=== PATIENT | female | born 1965 | race Asian ===

== ENCOUNTER 2016-12-08 12:48 | Emergency (ER) | payer BC ==
[2016-12-08] MEDS ORDERED: NS 1,000 ML IV ONE (12:53)
--- NOTE | 2016-12-08 13:05 | EDPHY ---
H & P Stated Complaint: Sudden onset SOB Time Seen by Provider: 12/08/16 12:53 HPI/ROS: CHIEF COMPLAINT: Severe dyspnea HISTORY OF PRESENT ILLNESS: The patient presents to the ED with complaints of severe dyspnea. The patient's symptoms began acutely at 11 o'clock this morning. She denies recent fever cough or congestion. She has no history of reactive airway disease. She reportedly had mild wheezing according to paramedics. She received Solu-Medrol and 2 albuterol breathing treatments. Patient denies history of pulmonary embolism. She denies history of significant medical disease. The patient [place] living [place] since May of last year. The patient did moved to [place] from [facility] during that time. REVIEW OF SYSTEMS: A comprehensive 10 point review of systems is otherwise negative aside from elements mentioned in the history of present illness. Source: Patient, EMS - Personal History Current Tetanus/Diphtheria Vaccine: No Current Tetanus Diphtheria and Acellular Pertussis (TDAP): No - Medical/Surgical History Hx Asthma: No Hx Chronic Respiratory Disease: No Hx Diabetes: No Hx Cardiac Disease: No Hx Renal Disease: No Hx Cirrhosis: No Hx Alcoholism: No Hx HIV/AIDS: No Hx Splenectomy or Spleen Trauma: No Other PMH: Denies - Social History Smoking Status: Current every day smoker - Physical Exam Exam: General Appearance: Alert, moderate distress secondary to dyspnea Eyes: Pupils equal and round no pallor or injection ENT, Mouth: Mucous membranes moist Respiratory: Scant expiratory wheezing, tachypnea Cardiovascular: Tachycardic Gastrointestinal: Abdomen is soft and nontender, no masses, bowel sounds normal Neurological: A&O, normal motor function, normal sensory exam, normal cranial nerves Skin: Warm and dry, no rashes Musculoskeletal: Neck is supple nontender Extremities: symmetrical, full range of motion Psychiatric: Patient is oriented X 3, there is no agitation Constitutional: Initial Vital Signs Temperature (C) 36.5 C 12/08/16 12:56 Heart Rate 118 H 12/08/16 12:56 Respiratory Rate 78 H 12/08/16 12:56 Blood Pressure 99/61 L 12/08/16 12:56 O2 Sat (%) 97 12/08/16 12:56 O2 Delivery Mode Room Air Allergies/Adverse Reactions: Penicillins Allergy (Verified 12/08/16 12:56) Home Medications: Medication Instructions Recorded NK [No Known Home Meds] 12/08/16 Medical Decision Making - Diagnostics EKG Interpretation: EKG: Complete interpretation has been separately recorded in the [employer] archive. Summary impression: Sinus rhythm, rate 92, mild LVH Imagin. Chest x-ray PA lateral: Images reviewed by myself, negative for acute abnormality. 2. Contrast Enhanced CT Scan of the Chest CT (CT Angiography) Images independently reviewed by myself Dr. Kitchen and discussed with radiologist Dr. Ryland Carlson Comparison Study: Chest radiography from earlier this afternoon. Findings: CT Angiography: The main pulmonary artery, the main right and left pulmonary arteries, and the first and second order pulmonary segments are contrast-opacified, with no filling defect to suggest acute or chronic thromboemboli. There is no interventricular septum deviation, and there is a small amount of reflux of contrast into the intrahepatic IVC. The ascending and descending thoracic aorta , as well as the visualized upper abdominal aorta are normal in caliber, with no aneurysm or dissection. There is a normal anatomic arrangement of the great vessels off the aortic arch. There is no coronary artery atherosclerotic calcification. The pericardium is normal. Contrast-Enhanced CT Scan of the Chest: There is pneumomediastinum present, noted at the base of the neck and thoracic inlet, and then surrounding the trachea and esophagus, and extending to the proximal left main stem bronchi and superior segment left lower lobe bronchi; there is no mass identified or mediastinal hematoma. There is no endobronchial lesion observed. The lungs are clear of infiltrate, atelectasis, or pulmonary nodule. There is biapical pleural- parenchymal fibrosis. There are some minor dependent changes seen posteriorly at the lung bases. There is no pleural effusion or pneumothorax. There is no pathologically-enlarged adenopathy. The visualized portions of the thyroid gland and the upper abdomen are normal. The osseous structures are age-appropriate. Impression: 1. There is no CT evidence of pulmonary artery thromboemboli. 2. Mild pneumomediastinum, of uncertain etiology. There is no evidence of a pneumothorax. 3. Mild biapical pleural-parenchymal fibrosis. ED Course/Re-evaluation: The patient presents to the ED with dyspnea which began abruptly earlier today. The patient was noted to be mildly tachycardic and slightly hypoxemic. The patient was noted to have an elevated D-dimer. A CT pulmonary angiogram was ordered which demonstrates no evidence of PE but does demonstrate evidence of pneumomediastinum. The patient's EKG demonstrates a sinus rhythm. Her troponin is normal. The patient did received 2 duo nebs prior to arrival. The patient had scant wheezing initially upon arrival. The patient was noted to be slightly tachycardic upon arrival. She did receive supplemental oxygen. The patient was evaluated and underwent 3 serial examinations over a 3 hour period. At this point time her dyspnea has entirely resolved. She has no complaints of chest pain. I did curbside Dr. Alexsander Short about the patient's incidentally noted pneumomediastinum. She has no symptoms suggestive of mediastinitis. She has no complaints of chest pain. He reports no further workup is indicated. The patient will referred to a [facility] primary care provider for establishing primary care. The patient understands given the uncertainty surrounding her dyspnea today that she needs to return to the ED immediately for any recurrent symptoms, chest pain, fever or other concerns. Differential Diagnosis: Differential diagnosis considered includes pulmonary embolism, pneumothorax, myocardial infarction, arrhythmia, bronchitis, pneumonia - Data Points Laboratory Results: Laboratory Results 12/08/16 13:05 12/08/16 13:05 12/08/16 12/08/16 13:06 13:05 WBC 8.41 10^3/uL (3.80-9.50) RBC 4.65 10^6/uL (4.18-5.33) Hgb 10.1 L g/dL (12.6-16.3) POC Hgb 12.2 L gm/dL (12.3-15.9) Hct 32.6 L % (38.0-47.0) POC Hct 36 % (35.5-47.5) MCV 70.1 L fL (81.5-99.8) MCH 21.7 L pg (27.9-34.1) MCHC 31.0 L g/dL (32.4-36.7) RDW 18.6 H % (11.5-15.2) Plt Count 194 10^3/uL (150-400) MPV 10.2 fL (8.7-11.7) Neut % (Auto) 69.1 % (39.3-74.2) Lymph % (Auto) 26.6 % (15.0-45.0) [place] % (Auto) 3.0 L % (4.5-13.0) Eos % (Auto) 0.7 % (0.6-7.6) Baso % (Auto) 0.1 L % (0.3-1.7) Nucleat RBC Rel Count 0.0 % (0.0-0.2) Absolute Neuts (auto) 5.81 10^3/uL (1.70-6.50) Absolute Lymphs (auto) 2.24 10^3/uL (1.00-3.00) Absolute Monos (auto) 0.25 L 10^3/uL (0.30-0.80) Absolute Eos (auto) 0.06 10^3/uL (0.03-0.40) Absolute Basos (auto) 0.01 L 10^3/uL (0.02-0.10) Absolute Nucleated RBC 0.00 10^3/uL (0-0.01) Immature Gran % 0.5 % (0.0-1.1) Immature Gran # 0.04 10^3/uL (0.00-0.10) D-Dimer 0.95 H ug/mLFEU (0.00-0.50) POC Sodium 142 mEq/L (134-144) Sodium 141 mEq/L (134-144) POC Potassium 3.4 mEq/L (3.3-5.0) Potassium 3.7 mEq/L (3.5-5.2) POC Chloride 105 mEq/L (96-108) Chloride 108 mEq/L (97-110) Carbon Dioxide 21 L mEq/l (22-31) Anion Gap 12 mEq/L (8-16) POC BUN 14 mg/dL (7-23) BUN 15 mg/dL (7-23) Creatinine 0.7 mg/dL (0.6-1.0) POC Creatinine 0.6 mg/dL (0.6-1.2) Estimated GFR > 60 Glucose 168 H mg/dL (70-100) POC Glucose 175 H mg/dL (70-100) Calcium 9.1 mg/dL (8.5-10.4) Troponin I < 0.012 ng/mL (0-0.034) Medications Given: Discontinued Medications Sodium Chloride (Ns) 1,000 mls @ 0 mls/hr IV ONCE ONE PRN Reason: Wide Open Stop: 12/08/16 12:54 Last Admin: 12/08/16 13:20 Dose: 1,000 mls Point of Care Test Results: 12/08/16 13:06 POC Sodium 142 POC Potassium 3.4 POC Chloride 105 POC BUN 14 POC Creatinine 0.6 POC Glucose 175 H Departure - Departure Disposition: Home, Routine, Self-Care Clinical Impression: Acute dyspnea, Pneumomediastinum Condition: Good Instructions: Dyspnea (ED) Additional Instructions: 1. Please return to the ED for any fever, chest pain, difficulty breathing or other concerns. 2. Please schedule a follow-up appointment with the primary care provider you have been referred to. Referrals: Bradley Subramanian MD [Medical Doctor] - As per Instructions
[2016-12-08 13:17] LABS: % IMMATURE GRANULYOCYTES 0.5 % (0.0-1.1); ABSOLUTE IMMATURE GRANULOCYTES 0.04 10^3/uL (0.00-0.10); ADD DIFF? NO; ADD MORPH? NO; ADD SCAN? NO; ATYPICAL LYMPHOCYTE FLAG 10 (0-99); FRAGMENT RBC FLAG 20 (0-99); HEMATOCRIT 32.6 % (38.0-47.0); HEMOGLOBIN 10.1 g/dL (12.6-16.3); LEFT SHIFT FLG 0 (0-99); LIPEMIA HEMOLYSIS FLAG 80 (0-99); MEAN CELL HEMOGLOBIN 21.7 pg (27.9-34.1); MEAN CELL VOLUME 70.1 fL (81.5-99.8); MEAN PLATELET VOLUME 10.2 fL (8.7-11.7); PLATELET CLUMPS FLAG 10 (0-99); PLATELET COUNT 194 10^3/uL (150-400); RED BLOOD CELL COUNT 4.65 10^6/uL (4.18-5.33); RED CELL DISTRIBUTION WIDTH 18.6 % (11.5-15.2)
--- NOTE | 2016-12-08 13:18 | CPEKG ---
Heart Rate: 92 RR Interval: 652 P-R Interval: 148 QRSD Interval: 92 QT Interval: 380 QTC Interval: 471 P Southside: 71 QRS [place]side: 85 T Wave [place]: -6 EKG Severity - ABNORMAL ECG - EKG Impression: SINUS RHYTHM EKG Impression: CONSIDER LEFT VENTRICULAR HYPERTROPHY Electronically Signed By: Riley Kitchen 08-Dec-2016 18:14:37
--- NOTE | 2016-12-08 13:28 | DX ---
Portable AP Upright Chest December 08, 2016 at 1:03 p.m. Clinical History: 51-year-old female with a flushed sensation and dyspnea. Comparison Study: None. Findings: Telemetry monitoring lead lines are noted. The cardiac and mediastinal silhouettes are norm al in size. There is moderate central perihilar bronchial wall thickening. There is no confluent infi ltrate, atelectasis, pleural effusion, peripheral interstitial edema, or pneumothorax. A nodular opac ity over the left lower chest likely corresponds to the patient's nipple, however, confirmation with nipple markers is recommended. The osseous structures are age-appropriate. The trachea is midline. Impression: 1. Perihilar bronchitis without a focal infiltrate. 2. Probable nipple artifact over the left lower chest; however, confirmation with nipple markers is s uggested. I have notified Real, our medical technologist hematology to obtain this additional view with nipple ma rkers while the patient is still in the emergency department. ADDENDUM: A follow-up radiograph was obtained at 1:27 p.m. with nipple markers. The previously seen n odular opacity does in fact correspond to the patient's nipple, and does not represent a pulmonary no dule.
[2016-12-08 13:36] LABS: ANION GAP 12 mEq/L (8-16); CALCIUM 9.1 mg/dL (8.5-10.4); CARBON DIOXIDE 21 mEq/l (22-31); CHLORIDE 108 mEq/L (97-110); CREATININE 0.7 mg/dL (0.6-1.0); GLOMERULAR FILTRATION RATE > 60; GLUCOSE 168 mg/dL (70-100); POTASSIUM 3.7 mEq/L (3.5-5.2); SODIUM 141 mEq/L (134-144)
[2016-12-08] MEDS ORDERED: IOPAMIDOL (ISOVUE 370) 100 ML BTL IV ONE ×2 (13:41→14:40)
[2016-12-08 13:47] LABS: TROPONIN I < 0.012 ng/mL (0-0.034)
--- NOTE | 2016-12-08 15:33 | CT ---
Contrast Enhanced CT Scan of the Chest CT (CT Angiography) Clinical History: 51-year-old female with severe chest pain for 3 hours, and an elevated D-dimer 0.95 . Rule out PE. The patient also has a "flushed" sensation. Technique: An initial bolus of 90 mL of Isovue-370 did not successfully capture the pulmonary arteria l tree during optimal contrast opacification, and the patient received a second bolus of 85 mL of Iso amparo-370 with success. A multidetector helical CT scan was obtained from the base of the neck inferior ly to the upper abdomen during peak arterial phase, with images reformatted in soft tissue, lung, desiree er, and bone windows, and are reformatted at 1.50 mm and 4/3 mm increments. Multiplanar reconstructio ns were reviewed on the workstation. Dose reduction techniques were utilized. Comparison Study: Chest radiography from earlier this afternoon. Findings: CT Angiography: The main pulmonary artery, the main right and left pulmonary arteries, and the first and second order pulmonary segments are contrast-opacified, with no filling defect to suggest acute o r chronic thromboemboli. There is no interventricular septum deviation, and there is a small amount o f reflux of contrast into the intrahepatic IVC. The ascending and descending thoracic aorta, as well as the visualized upper abdominal aorta are normal in caliber, with no aneurysm or dissection. There is a normal anatomic arrangement of the great vessels off the aortic arch. There is no coronary arter y atherosclerotic calcification. The pericardium is normal. Contrast-Enhanced CT Scan of the Chest: There is pneumomediastinum present, noted at the base of the neck and thoracic inlet, and then surrounding the trachea and esophagus, and extending to the proxima l left main stem bronchi and superior segment left lower lobe bronchi; there is no mass identified or mediastinal hematoma. There is no endobronchial lesion observed. The lungs are clear of infiltrate, atelectasis, or pulmonary nodule. There is biapical pleural-parenchymal fibrosis. There are some john r dependent changes seen posteriorly at the lung bases. There is no pleural effusion or pneumothorax. There is no pathologically-enlarged adenopathy. The visualized portions of the thyroid gland and the upper abdomen are normal. The osseous structures are age-appropriate. Impression: 1. There is no CT evidence of pulmonary artery thromboemboli. 2. Mild pneumomediastinum, of uncertain etiology. There is no evidence of a pneumothorax. 3. Mild biapical pleural-parenchymal fibrosis. Results were discussed with Dr. Riley Kitchen. A test result has been communicated to a licensed care provider and documented in the [employer] Critical Result system on 12/08/2016 15:29, Message ID [id number].
[2016-12-08 16:52] VITALS: BP 98/57; PULSE 74; RESP 16; TEMP 98.6; O2SAT 93
== END 2016-12-08 16:52 | disposition home or self-care (01) ==
DX: R06.00 Dyspnea, unspecified (principal); J98.2 Interstitial emphysema; F17.200 Nicotine dependence, unspecified, uncomplicated
CPT/HCPCS: 82947-QW; Q9967

== ENCOUNTER 2018-03-07 15:43 | Inpatient (IN) | payer BC, MEDICAID ==
[2018-03-07] MEDS ORDERED: NS 500 ML IV ONE (16:27)
--- NOTE | 2018-03-07 16:31 | EDPHY ---
H & P Time Seen by Provider: 03/07/18 16:20 HPI/ROS: CHIEF COMPLAINT: Left flank pain HISTORY OF PRESENT ILLNESS: The patient is a 52-year-old female who presents emergency department multiple complaints. Patient states she developed left flank pain 3 days ago. Her pain is been fairly constant. It is mildly worse. The patient also complains of a fever starting today. While brushing her teeth she noticed a small blood in her spit after coughing. The patient denies significant cough. No chest pain or shortness of breath. No leg pain or swelling. No dysuria frequency. No hematuria. REVIEW OF SYSTEMS: My complete review of systems is negative except as mentioned in the HPI. Past Medical/Surgical History: Denies Social history: The patient smokes. Smoking Status: Current every day smoker Physical Exam: 38.8, 116/68, 116, 22, 95. Repeat vital signs at 1613:37.8, 106/71, 96, 16, 95% on room air GENERAL: Well-appearing, in no acute distress, alert. HEENT: Eyes normal to inspection, normal pharynx, no signs of dehydration. NECK: No thyromegaly, no lymphadenopathy, supple. RESPIRATORY: Clear to auscultation bilaterally, no rales, rhonchi or wheezing. CVS: Regular rate and rhythm, no rubs, murmurs, or gallops. ABDOMEN: Soft, nontender, nondistended, no organomegaly. BACK: Normal to inspection, no CVA tenderness. No rash SKIN: Normal color, no rash, warm, dry. No pallor. EXTREMITIES: No pedal edema, no calf tenderness, no Homans sign or cords, no joint swelling. NEURO/PSYCH: Alert and oriented, normal mood and affect, normal motor sensory exam. Constitutional: Initial Vital Signs Temperature (C) 38.8 C H 03/07/18 15:57 Heart Rate 116 H 03/07/18 15:57 Respiratory Rate 22 H 03/07/18 15:57 Blood Pressure 116/68 03/07/18 15:57 O2 Sat (%) 95 03/07/18 15:57 O2 Delivery Mode Room Air Allergies/Adverse Reactions: Penicillins Allergy (Verified 03/07/18 15:52) Home Medications: Medication Instructions Recorded Cefaclor 03/07/18 Ibuprofen 03/07/18 Medical Decision Making - Diagnostics Imaging Results: Imaging Impressions Abdomen/Pelvis CT 03/07/18 16:28 Impression: 1. Left basilar pneumonia versus pulmonary infarction. 2. Normal kidneys. No nephrolithiasis or obstructing ureteral calculi. 3. No appendicitis or localized intraabdominal inflammatory process. Findings discussed with Emergency Department physician, Zoe Stewart M.D. , on March 07, 2018 at 1749. Attention: This CT examination is specifically designed to evaluate patients who are clinically suspected of having acute obstructive uropathy. This examination does not use radiographic contrast, and as such, provides only a limited evaluation of the abdomen, pelvis, and retroperitoneum. If there is further clinical suspicion for pathological conditions other than obstructive uropathy, a complete CT evaluation of the abdomen and pelvis utilizing intravenous, oral, and rectal contrast should be considered. Chest X-Ray 03/07/18 16:28 Impression: Equivocal left basilar consolidation versus atelectasis. Findings discussed with Emergency Department physician, Zoe Stewart M.D. ED Course/Re-evaluation: In the emergency department I discussed possible etiologies with the patient. I answered all her questions. IV was placed. Laboratory studies were obtained. Because of the patient's reported blood in sputum a chest x-ray was ordered. CT of the abdomen pelvis without contrast was ordered. The patient's CBC was normal. Patient's white count is normal. The patient is anemic with a low hematocrit. The patient is thrombocytopenic with platelets of 100. Chemistry panel is unremarkable. UA negative. The CT the abdomen pelvis: Please refer the dictated report by Dr. Weber. Patient has abnormal left lower lobe. He felt this is related to pneumonia versus pulmonary embolus. CT angiogram was ordered. CT angiogram of the chest: Please refer the dictated report by Dr. Weber. Patient has a left sided pulmonary embolus. I discussed the results with the patient. I answered all her questions. On repeat evaluation the patient states that she has previously had a DVT. She is on medications from her changes physician. I discussed the case with the hospitalist service. Dr. Salazar will admit. She will come and evaluate the patient and determine what anticoagulant patient should be on. Differential Diagnosis: My differential includes but is not limited to kidney stone, pyelonephritis, urinary tract infection, bronchitis, pneumonia, pulmonary embolus, pulmonary infarct, zoster - Data Points Laboratory Results: Laboratory Results 03/07/18 16:30 18 16:30 03/07/1818 03/07/18 16:30 16:30 16:30 WBC 7.36 10^3/uL 10^3/uL (3.80-9.50) RBC 4.16 10^6/uL L 10^6/uL (4.18-5.33) Hgb 9.4 g/dL L g/dL (12.6-16.3) Hct 30.1 % L % (38.0-47.0) MCV 72.4 fL L fL (81.5-99.8) MCH 22.6 pg L pg (27.9-34.1) MCHC 31.2 g/dL L g/dL (32.4-36.7) RDW 18.5 % H % (11.5-15.2) Plt Count 100 10^3/uL L 10^3/uL (150-400) MPV TNP Neut % (Auto) 75.3 % H % (39.3-74.2) Lymph % (Auto) 17.7 % % (15.0-45.0) [place] % (Auto) 6.4 % % (4.5-13.0) Eos % (Auto) 0.0 % L % (0.6-7.6) Baso % (Auto) 0.3 % % (0.3-1.7) Nucleat RBC Rel Count 0.0 % % (0.0-0.2) Absolute Neuts (auto) 5.55 10^3/uL 10^3/uL (1.70-6.50) Absolute Lymphs (auto) 1.30 10^3/uL 10^3/uL (1.00-3.00) Absolute Monos (auto) 0.47 10^3/uL 10^3/uL (0.30-0.80) Absolute Eos (auto) 0.00 10^3/uL L 10^3/uL (0.03-0.40) Absolute Basos (auto) 0.02 10^3/uL 10^3/uL (0.02-0.10) Absolute Nucleated RBC 0.00 10^3/uL 10^3/uL (0-0.01) Immature Gran % 0.3 % % (0.0-1.1) Immature Gran # 0.02 10^3/uL 10^3/uL (0.00-0.10) VBG Lactic Acid Sodium 138 mEq/L mEq/L (135-145) Potassium 4.1 mEq/L mEq/L (3.5-5.2) Chloride 102 mEq/L mEq/L (97-110) Carbon Dioxide 23 mEq/l mEq/l (22-31) Anion Gap 13 mEq/L mEq/L (8-16) BUN 12 mg/dL mg/dL (7-23) Creatinine 0.6 mg/dL mg/dL (0.6-1.0) Estimated GFR > 60 Glucose 92 mg/dL mg/dL (70-100) Calcium 8.9 mg/dL mg/dL (8.5-10.4) Procalcitonin Pending Urine Color Urine Appearance Urine pH Ur Specific [place] Urine Protein Urine Ketones Urine Blood Urine Nitrate Urine Bilirubin Urine Urobilinogen Ur Leukocyte Esterase Urine RBC Urine WBC Ur Epithelial Cells Urine Mucus Urine Glucose 03/07/18 03/07/18 16:30 16:04 WBC RBC Hgb Hct MCV MCH MCHC RDW Plt Count MPV Neut % (Auto) Lymph % (Auto) [place] % (Auto) Eos % (Auto) Baso % (Auto) Nucleat RBC Rel Count Absolute Neuts (auto) Absolute Lymphs (auto) Absolute Monos (auto) Absolute Eos (auto) Absolute Basos (auto) Absolute Nucleated RBC Immature Gran % Immature Gran # VBG Lactic Acid 0.8 mmol/L mmol/L (0.7-2.1) Sodium Potassium Chloride Carbon Dioxide Anion Gap BUN Creatinine Estimated GFR Glucose Calcium Procalcitonin Urine Color YELLOW Urine Appearance CLEAR Urine pH 5.0 (5.0-7.5) Ur Specific [place] 1.019 (1.002-1.030) Urine Protein NEGATIVE (NEGATIVE) Urine Ketones NEGATIVE (NEGATIVE) Urine Blood NEGATIVE (NEGATIVE) Urine Nitrate NEGATIVE (NEGATIVE) Urine Bilirubin NEGATIVE (NEGATIVE) Urine Urobilinogen NEGATIVE EU EU (0.2-1.0) Ur Leukocyte Esterase NEGATIVE (NEGATIVE) Urine RBC 1-3 /hpf /hpf (0-3) Urine WBC 1-3 /hpf /hpf (0-3) Ur Epithelial Cells NONE SEEN /lpf /lpf (NONE-1+) Urine Mucus 2+ /lpf H /lpf (NONE-1+) Urine Glucose NEGATIVE (NEGATIVE) Medications Given: Discontinued Medications Sodium Chloride (Ns) 500 mls @ 0 mls/hr IV EDNOW ONE; Wide Open PRN Reason: Protocol Stop: 03/07/18 16:28 Last Admin: 03/07/18 16:50 Dose: 500 mls Departure - Departure Disposition: [facility] Inpatient Acute Clinical Impression: Flank pain Pulmonary embolism Qualifiers: Pulmonary embolism type: other Chronicity: acute Acute cor pulmonale presence: without acute cor pulmonale Qualified Code(s): I26.99 - Other pulmonary embolism without acute cor pulmonale Condition: Good
[2018-03-07 17:41] LABS: PLATELET COUNT 100 10^3/uL (150-400)
[2018-03-07] MEDS ORDERED: IOPAMIDOL (ISOVUE 370) 100 ML BTL IV ONE (17:55)
[2018-03-07] MEDS ORDERED: ONDANSETRON 4 MG/2 ML VIAL IVP PRN (18:29)
[2018-03-07] MEDS ORDERED: ONDANSETRON DISINTEGRATING 4 MG TAB PO PRN (18:29)
[2018-03-07 19:24] LABS: PROTIME(PATIENT) 13.4 SEC (12.0-15.0)
[2018-03-07] MEDS: ACETAMINOPHEN 325 MG TAB PO PRN (19:41)
[2018-03-07] MEDS ORDERED: HEPARIN 10,000 UNIT/10 ML MDV (1,000 UNIT/ML) IVP PRN (20:06)
[2018-03-07] MEDS ORDERED: ALBUTEROL 60 PUFFS/8 GM MDI IH PRN (20:07)
[2018-03-07] MEDS ORDERED: guaiFENesin 200 MG TAB PO PRN (20:08)
[2018-03-07] MEDS ORDERED: HEPARIN/DEXTROSE 25,000 UNIT/500 ML BAG ONE (20:15)
[2018-03-07] MEDS ORDERED: HEPARIN/DEXTROSE 500 ML IV SCH (20:15)
--- NOTE | 2018-03-07 20:51 | GHP ---
[f rep st] HISTORY AND PHYSICAL DATE OF ADMISSION: 03/07/2018 CHIEF COMPLAINT: Fever, left flank pain, acute pulmonary embolism. HISTORY OF PRESENT ILLNESS: A 52-year-old female with a history of peripheral artery disease with right leg involvement, presenting with fever, cough, and left flank pain. Fever started 2 days ago and then developed left flank pain that was sharp and worse with deep inspiration. Pain so bad that it was difficult to catch her breath. Fevered to 100 at home with chills, sweats, and myalgias. Trace of blood in sputum. Denies ill contacts. No recent travel. No pets. Denies CP or SOB. Walks 4 miles daily. She was medical treatment in [facility] prior to moving back to [place] in 2015. She was prescribed Sarpogrelate, and Beraprost for PAD. Had a normal mammogram and Pap smear last year. Has never had a colonoscopy. Denies hematochezia. REVIEW OF SYSTEMS: I completed a 10-point review of system, negative except as noted in HPI. PAST MEDICAL HISTORY: PAD, RLE diagnosed in [facility]. States the surgical option was too late and is on 2 medications as stated in HPI. Used to have cramping, but now can walk 4 miles a day. PAST SURGICAL HISTORY: None. FAMILY HISTORY: Father of heart failure, hypertension. Mother was healthy , in her 80s. 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 She lives here in [place] alone. She is . She has smoked 2 to 3 cigarettes on and off for 20 years. ALLERGIES: Penicillin. HOME MEDICATIONS: Sarpogrelate HCl 100 mg b.i.d., ibuprofen as needed, Beraprost 40 mcg b.i.d., albuterol. PHYSICAL EXAM: Temperature 38.8, blood pressure 116/60, heart rate is 116, respirations 16-22, 95% on room air. GENERAL: Well-nourished female, in no acute distress. HEENT: PERRLA. EOMI. Mildly dry mucous membranes. CV: Tachy but regular. No murmurs, gallops, or rubs. No lower extremity. LUNGS: Clear. Decreased breath sounds left base. GI: Soft, nontender, nondistended. Positive bowel sounds. : No Reis. No flank or suprapubic tenderness. MUSCULOSKELETAL: 5/5 upper and lower extremity strength. +2 pedal pulses on the left, diminished on the right. NEUROLOGIC: 2 through 12 intact. Normal sensation to touch. PSYCH: Alert and oriented x3. Tearful. LABORATORY DATA: WBC 7, hemoglobin 9.4, hematocrit 30, platelets 100, MCV 72. INR is 1, PT is 13, PTT is 35. D-dimer is 0.95. Lactate 0.8. Sodium is 138, potassium 4.1, chloride 102, carbon dioxide 23, BUN 12, creatinine 0.6, glucose 92. Procalcitonin is 0.042. Troponin is less than 0.012. BNP is 81. Iron studies pending. Chest x-ray personally reviewed by me. Left base consolidation. Abdominal CT: Left basilar pneumonia versus pulmonary infarct. No appendicitis. CTA: Small to moderate volume of acute PE in left lower lobe. No evidence of right heart strain. Benign 4 mm right upper lobe pulmonary nodule. ASSESSMENT/PLAN: 1. Acute left-sided pulmonary embolism: needs malignancy screen. Self-reports normal Pap/mammogram a year ago. Has never had a colonoscopy. Small LUE nodule needs repeat imaging. Will be cautious with the anticoagulation here since platelets 100. Heparin gtt without bolus and monitor labs closely overnight. I spent great length reviewing increased bleeding risk on AC with low platelets. She acknowledged risks and agrees with plan. 2. Microcytic anemia: chronic from last year; add iron studies. Needs colonoscopy as an outpatient. Denies hematochezia or black stools. 3. Thrombocytopenia: This may be secondary to her medications Beraprost and sarpogrelate. I have asked the pharmacy to further investigate these. Check coags and a smear. 4. Fevers: suspect from PE. Does have opacity that may be pulm infarct. Procalcitonin negative, resp PCR pending. Currently hold off on antibiotics. Blood cultures 5. History of PAD: diagnosed in [facility]. Currently medically managed and able to walk daily without pain. Will have monitor her platelets with these medications. 6. Left upper lobe pulmonary nodule: has tobacco history. Repeat imaging outpatient. 7. Social situation: Needs to establish care with a primary care physician. We will have case management assist with this. DIET: Regular. DEEP VEIN THROMBOSIS PROPHYLAXIS: On heparin drip. DISPOSITION: Patient warrants observation admission given acute PE warranting IV heparin and close monitoring. /[id number]/MODL MTDD
[2018-03-07] MEDS: oxyCODONE IR 5 MG TAB PO PRN (23:57)
[2018-03-08] MEDS ORDERED: MELATONIN 3 MG TAB PO PRN (01:20)
[2018-03-08] MEDS: ACETAMINOPHEN 325 MG TAB PO PRN ×2 (04:44→13:56)
[2018-03-08] MEDS: SODIUM FERRIC GLUCONAT/SUCROSE 125 MG in NS 100 ML IV SCH (11:33)
[2018-03-08] MEDS: ENOXAPARIN 60 MG/0.6 ML SYR SC SCH ×2 (12:08→20:57)
[2018-03-08] MEDS: oxyCODONE IR 5 MG TAB PO PRN ×2 (12:52→21:03)
--- NOTE | 2018-03-08 13:33 | HOSPPROG ---
Hospitalist Progress Note Assessment/Plan: * Acute PE * will switch to lovenox and coumadin. considered novel AC but has iron deficiency anemia and menorrhagia. Would like reversible agent for now. 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 She has a picture of the angiogram on her phone. Age and the lack of risk factors make atherosclerotic PAD less likely. She is probably hypercoagulable. * will stop the unknown [place] anti -coagulants * check hypercoagulable panel * she is now able to walk several miles per day withour pain so would not relook at [facility] to consider intervention *iron def anemia * admits to significant menorrhagia and was iron deficient last year * will guaic stool but since she was anemic last year - not necessarily expecting colon mass - will hold off on inpatient colonoscopy * give IV iron while here * thrombocytopenia * not sure if the meds she was on causes that - will stop and watch * dispo - probably home in the next couple days Subjective: pain better Objective: Vital Signs Temp Pulse Resp BP Pulse Ox 37.4 C 81 18 100/63 95 03/08/18 12:00 03/08/18 12:00 03/08/18 12:00 03/08/18 12:00 03/08/18 12:00 Microbiology 03/07/18 20:03 Respiratory Panel (PCR) - Final Nasal, Sinus - Unspecified No Organism Detected Laboratory Results 03/08/18 03:45 03/07/18 03/08/18 03/09/18 05:59 05:59 05:59 Intake Total 1002 Balance 1002 PT 13.4 SEC (12.0-15.0) 03/07/18 16:30 INR 1.00 (0.83-1.16) 03/07/18 16:30 - Physical Exam Constitutional: no apparent distress, appears nourished, not in pain Eyes: anicteric sclera, EOMI Cardiovascular: regular rate and rhythym Respiratory: no respiratory distress, no rales or rhonchi, clear to auscultation Skin: warm Musculoskeletal: other (absent right pedal pulses, warm) Neurologic: AAOx3 Psychiatric: interacting appropriately, not anxious, not encephalopathic, thought process linear ICD10 Worksheet Patient Problems: Problems Problem Status Onset Flank pain Acute Pulmonary embolism Acute
--- NOTE | 2018-03-08 13:49 | PDMN ---
Medical Necessity Medical necessity: C/M review: est. > 2 MN LOS for eval and TX of acute left lower lobe pulmonary embolism on CT, iron deficiency anemia requiring IV heparin infusion 03/07/2018 - 03/08/2018 AM, IV Iron QD x 2 doses 03/08/2018 and 2017, ongoing transition to subcutaneous Lovenox BID, oral Coumadin, cardiac monitoring, pulse oximetry, comorbid history of arterial thrombosis right popliteal artery - stop unknown [place] anti-coagulants, menorrhagia, iron deficiency last year per 03/08/2018 Hospitalist progress note.
[2018-03-08] MEDS: ALBUTEROL 3 ML DEYVIAL IH PRN (15:09)
--- NOTE | 2018-03-08 16:34 | ASMTCMCOM ---
CM Note CM Note Notes: Chart reviewed.Met with patient. 52 Year old female with PE. She shares she lost her 1 year ago and is still grieving. She Has not sought counseling and tells me she has a support network of friends but none are local. She is tearful and believes that her grief is causing her health issues. We talked about Her following up with Ania Ley as she has had no need for routine care until now. We also talked about her seeking counseling to help with her depression. She shares with me that maybe she will look for employment or volunteer. Her family is in [facility] but she somehow feels closer to her here. CM to follow. Plan: DC to home with PCP provider in place Date Signed: 03/08/2018 04:34 PM Electronically Signed By:Dee Flores RN
[2018-03-08] MEDS: WARFARIN SODIUM 5 MG TAB PO SCH (17:12)
[2018-03-09] MEDS: ACETAMINOPHEN 325 MG TAB PO PRN ×3 (00:26→22:21)
[2018-03-09 04:58] LABS: INR 1.13 (0.83-1.16); PROTIME(PATIENT) 14.7 SEC (12.0-15.0)
[2018-03-09 05:20] LABS: PLATELET COUNT 127 10^3/uL (150-400)
[2018-03-09] MEDS: SODIUM FERRIC GLUCONAT/SUCROSE 125 MG in NS 100 ML IV SCH (08:19)
[2018-03-09] MEDS: ENOXAPARIN 60 MG/0.6 ML SYR SC SCH (08:19)
[2018-03-09] MEDS: oxyCODONE IR 5 MG TAB PO PRN (12:06)
[2018-03-09] MEDS: WARFARIN SODIUM 5 MG TAB PO SCH (15:11)
[2018-03-09] MEDS: ALBUTEROL 3 ML DEYVIAL IH PRN (15:15)
--- NOTE | 2018-03-09 16:30 | GCON ---
[f rep st] CONSULTATION CHIEF COMPLAINT: Iron deficiency anemia. HISTORY OF PRESENT ILLNESS: I have been asked to see this very pleasant 52-year-old woman in consult ation by Dr. Prosper Maradiaga for evaluation of anemia. The patient was admitted to the hospital with pulmonary embolus. She has been started on anticoagulation. She has been started on heparin and Cou madin. She has had a prior history of peripheral artery disease with right leg involvement with a cl ot in her right leg. This was treated medically. She came to the hospital with complaint of chest p ain with these deep inspirations. She had a CT scan consistent with pulmonary embolus. She was star christos on heparin and Coumadin. She was found to be anemic with microcytic indices and low ferritin. S he does have a history of heavy menstrual cycles and has been intermittently on iron in the past. Sh lisa has no nausea or vomiting. No dysphagia. She denies any abdominal pain or discomfort. She denies any black or bloody stool. She has had no change in bowel habits. She has no family history of colo n cancer or colon polyps or GI malignancy. PAST MEDICAL HISTORY: Remarkable for previous right leg arterial thrombosis in the right lower extre mity. PAST SURGICAL HISTORY: Negative. FAMILY HISTORY: Remarkable for father dying of heart failure, hypertension. Mother was healthy, d in her 80s. Negative as it pertains to chief complaint. 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 Lives in [place]. . Smokes 2-3 cigarettes on and off for 20 years. ALLERGIES: Penicillin. MEDICATIONS PRIOR TO ADMISSION: Included sarpogrelate 100 mg b.i.d., ibuprofen, beraprost 40 mcg b.i .d., and albuterol. MEDICATIONS IN THE HOSPITAL: Include Coumadin 5 mg p.o. daily and Lovenox 50 mcg b.i.d. REVIEW OF SYSTEMS: Negative for 10 systems, other than mentioned in HPI. PHYSICAL EXAM: VITAL SIGNS: 91/59, heart rate of 82, respiratory rate 20, 94% sat on room air, 37.7. GENERAL: Very pleasant woman. No acute distress. HEENT: Normocephalic, atraumatic. EOMI. NECK : Supple. No cervical adenopathy. No thyromegaly. Mucous membranes moist. LUNGS: Clear. CARDIA C: Normal S1, S2, without murmur. ABDOMEN: Soft, benign. No hepatosplenomegaly. Normal bowel chelsey nds. EXTREMITIES: Without clubbing, cyanosis, edema. NEURO: Nonfocal. SKIN: Warm, dry, intact. PSYCH: Alert and oriented x3 with normal affect. LABORATORY DATA: Hemoglobin of 8.5, hematocrit 28.2, MCV of 73.2. PT of 14.7, INR 1.13. IMPRESSION: A 52-year-old woman with history of pulmonary embolus, iron deficiency anemia. Would re commend ruling out significant gastrointestinal pathology/malignancy in the setting of hypercoagulabi lity and microcytic and iron deficiency anemia. RECOMMENDATIONS: Clear liquid diet. Prep with 2-4 L of GoLYTELY. N.p.o. after midnight. Proceed w ith diagnostic endoscopy, colonoscopy. Will follow with you. /[id number]/MODL
[2018-03-09] MEDS ORDERED: PEG 3350/NA SULF,BICARB,CL/KCL (GAVILYTE-G) 4000 ML BTL PO ONE (17:37)
--- NOTE | 2018-03-09 17:59 | HOSPPROG ---
Hospitalist Progress Note Assessment/Plan: DIAGNOSES: * acute PE, bilateral, hemodynamically stable with no need for supplemental oxygen * No definite and defined risk factors at this time, still under assessment * severe iron deficiency anemia chronic with some prior history of mild anemia diagnosed 1 year ago * Still having some menstrual cycles so a lot of this may be menstrual, however this is very severe anemia for menstrual bleeding and woman this age * Given that she will need full-dose anticoagulation for her PE I have reviewed in detail with Dr. Zane Lockett and we have agreed that proceeding with GI diagnostic studies at this point is prudent to be sure of the safety of the anticoagulation, also to look for causes of her iron deficiency anemia and possibly causes of her hypercoagulability * history of acute arterial occlusion of her leg approximately 2 years ago in [place], uncertain if this was embolic or atherosclerotic occlusion but given its acute nature suspect possible thrombus or embolus * Given this history would be concerned about the possibility of some chronic hypercoagulable state though she is unaware of a family history of same * Home medicines for this include Sarprogrelate a 5 hydroxytryptamine inhibitor that decreases platelet activation, and Beraprost, and medicine that blocks prostacyclin membrane receptors and also has anti-platelet activity; these are currently being held at this time originally were held because of her low platelets but also would hold them now on anticoagulation; will review use of these medicines with our vascular team here PLANS: -I reviewed her case in detail today with Dr. Zane Lockett -continue anticoagulant but at this time will be changing to heparin drip because of upcoming procedures -for the moment continue holding her platelet inhibitor medications but will review use of these medicines in her current situation with her vascular team -continue iron supplements -plan on upper endoscopy and colonoscopy tomorrow to look for any GI cause of iron deficiency, or any malignancy or other cause of hypercoagulability -given her history of both arterial and pulmonary embolic thrombotic disease, she should have hypercoagulation panel testing done if we do not find something on the GI studies; anticardiolipin antibodies have been ordered but I will order the rest of the panel if GI workup negative SUBJECTIVE: Patient feels better with a decrease in her left side pleuritic chest pain and feels like she is getting a breath more easily No leg pain or swelling Is able to walk in the hallway today No bleeding or bruising related to her anticoagulation so far OBJECTIVE Vitals reviewed: Stable without fever Equipment Driver, my review: Exam: alert oriented skin warm dry color ok resps not labored lungs clear BSs heart regular abd soft nondistended nontender, bowel sounds present limbs warm, no edema No bruises or bleeding seen anywhere iv site ok Laboratory data: Hemoglobin stable at 8.5 today, platelets a bit higher 127 Iron studies now back with a iron saturation of 6 and ferritin of 12 confirming severe iron deficiency as the cause of her microcytic anemia Basic met panel and liver panel unremarkable today I reviewed her CT scan images from the ER and there is very clearly bilateral pulmonary embolic disease that is acute, but no masses or inflammatory abnormalities noted Objective: Vital Signs Temp Pulse Resp BP Pulse Ox 36.9 C 82 16 104/65 94 03/09/18 16:00 03/09/18 16:00 03/09/18 16:00 03/09/18 16:00 03/09/18 16:00 Laboratory Results 03/09/18 04:12 03/09/18 04:12 03/08/18 03/09/18 03/10/18 06:59 06:59 06:59 Intake Total 1002 1250 Balance 1002 1250 PT 14.7 SEC (12.0-15.0) 03/09/18 04:12 INR 1.13 (0.83-1.16) 03/09/18 04:12 ICD10 Worksheet Patient Problems: Problems Problem Status Onset Flank pain Acute Pulmonary embolism Acute
[2018-03-09] MEDS: HEPARIN 10,000 UNIT/10 ML MDV (1,000 UNIT/ML) IVP PRN (19:48)
[2018-03-09] MEDS: HEPARIN/DEXTROSE 500 ML IV SCH (19:48)
[2018-03-10] MEDS: HEPARIN 10,000 UNIT/10 ML MDV (1,000 UNIT/ML) IVP PRN (02:57)
[2018-03-10] MEDS: oxyCODONE IR 5 MG TAB PO PRN (04:51)
[2018-03-10 06:04] LABS: INR 1.14 (0.83-1.16); PROTIME(PATIENT) 14.8 SEC (12.0-15.0)
[2018-03-10] MEDS ORDERED: MAGNESIUM CITRATE 300 ML BOTTLE PO ONE (06:45)
[2018-03-10] MEDS ORDERED: BISACODYL 10 MG SUPP PR PRN (10:11)
[2018-03-10] MEDS: ACETAMINOPHEN 325 MG TAB PO PRN ×2 (10:35→20:46)
--- NOTE | 2018-03-10 11:25 | HOSPPROG ---
Hospitalist Progress Note Assessment/Plan: DIAGNOSES: * acute PE, bilateral, hemodynamically stable with no need for supplemental oxygen * No definite and defined risk factors at this time, still under assessment * severe iron deficiency anemia chronic with some prior history of mild anemia diagnosed 1 year ago * Still having some menstrual cycles so a lot of this may be menstrual, however this is very severe anemia for menstrual bleeding and woman this age * Given that she will need full-dose anticoagulation for her PE I have reviewed in detail with Dr. Zane Lockett and we have agreed that proceeding with GI diagnostic studies at this point is prudent to be sure of the safety of the anticoagulation, also to look for causes of her iron deficiency anemia and possibly causes of her hypercoagulability * history of acute arterial occlusion of her leg approximately 2 years ago in [place], uncertain if this was embolic or atherosclerotic occlusion but given its acute nature suspect possible thrombus or embolus * Given this history would be concerned about the possibility of some chronic hypercoagulable state though she is unaware of a family history of same * Home medicines for this include Sarprogrelate a 5 hydroxytryptamine inhibitor that decreases platelet activation, and Beraprost, and medicine that blocks prostacyclin membrane receptors and also has anti-platelet activity; these are currently being held at this time originally were held because of her low platelets but also would hold them now on anticoagulation; will review use of these medicines with our vascular team here PLANS: -I reviewed her case with Dr. 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, she should have hypercoagulation panel testing done if we do not find something on the GI studies; anticardiolipin antibodies have been ordered but I will order the rest of the panel if GI workup negative SUBJECTIVE: Still some mild fever symptoms and cough The left pleuritic chest pain continues to improve but not resolved yet Still a tiny bit of intermittent hemoptysis, but no other signs of bleeding OBJECTIVE Vitals reviewed: Stable without fever Pulp Tester, my review: Exam: alert oriented skin warm dry color ok resps not labored lungs clear BSs heart regular limbs warm, no edema No bruises or bleeding seen anywhere iv site ok ADDENDUM TO ABOVE NOTE: The patient has now had her EGD and colonoscopy, with no concerning lesions and no evidence of current bleeding found on either study. At this point it would appear safe to resume her anticoagulant therapy for her PE, and to continue iron supplementation. Will review further with Dr. Lockett whether a capsule endoscopy as outpatient would be useful to look for small bowel sources, but clearly she is having ongoing menstrual bleeding which is going to be a source of iron deficiency for her. She should consider visiting with gynecology to consider management options. However clearly what will be indicated is to monitor her anemia and iron levels over time, and if these cannot be managed appropriately with oral therapy she may need intravenous therapy intermittently until she supplemental bleeding. Addition of vitamin C to oral supplements will be potentially helpful. At the moment all started back on heparin drip. However a before resuming Coumadin therapy I will review with her once she is fully awake after sedation, options for Coumadin verses new oral anticoagulant medication, as there are no particular contraindications for those medicines and her and they are the more generally recommended medicine overall for treating PE at this point. Objective: Vital Signs Temp Pulse Resp BP Pulse Ox 37.7 C 100 18 93/64 L 93 03/10/18 11:11 03/10/18 11:11 03/10/18 11:11 03/10/18 11:11 03/10/18 11:11 Laboratory Results 03/09/18 04:12 03/09/18 04:12 03/09/18 03/10/18 03/11/18 06:59 06:59 06:59 Intake Total 1250 Balance 1250 PT 14.8 SEC (12.0-15.0) 03/10/18 05:00 INR 1.14 (0.83-1.16) 03/10/18 05:00 - Time Spent With Patient Time Spent with Patient: greater than 35 minutes Time Spent with Patient: Greater than 35 minutes spent on this patients care, greater than 50% of time spent counseling, educating, and coordinating care regarding the above mentioned plan. ICD10 Worksheet Patient Problems: Problems Problem Status Onset Flank pain Acute Pulmonary embolism Acute
--- NOTE | 2018-03-10 13:21 | PDANEPAE ---
ANE History of Present Illness EGD colonoscope ANE Past Medical History - Pulmonary History Hx Oxygen in Use at Home: No Hx Sleep Apnea: No Sleep Apnea Screening Result - Last Documented: Negative - Endocrine History Hx Diabetes: No ANE Review of Systems Review of Systems: - Exercise capacity METS (RN): 4 METS ANE Patient History - Allergies Allergies/Adverse Reactions: Penicillins Allergy (Verified 03/07/18 20:21) Rash - Home Medications Home medications: home medication list seen and reviewed Home Medications: Albuterol [Proventil Inhaler HFA (*)] 1 - 2 puffs IH Q4H PRN 03/07/18 [Last Taken Unknown] Beraprost 40 Mcg Tab 40 mcg PO BID 03/07/18 [Last Taken 03/07/18] Ibuprofen [Motrin (*)] 200 - 400 mg PO BID PRN 03/07/18 [Last Taken Unknown] Sarpogrelate Hcl 100mg Tab 100 mg PO BID 03/07/18 [Last Taken 03/07/18] - NPO status NPO Since - Liquids (Date): 03/10/18 NPO Since - Liquids (Time): 09:00 NPO Since - Solids (Date): 03/09/18 NPO Since - Solids (Time): 15:00 - Smoking Hx Smoking Status: Current every day smoker ANE Labs/Vital Signs - Labs Result Diagrams: 03/09/18 04:12 03/09/18 04:12 - Vital Signs Blood Pressure: 92/56 Heart Rate: 88 Respiratory Rate: 14 O2 Sat (%): 94 Height: 160.02 cm Weight: 49.4 kg ANE Physical Exam - Airway Neck exam: decreased ROM Mallampati Score: Class 2 - Pulmonary Pulmonary: no respiratory distress, no rales or rhonchi - Cardiovascular Cardiovascular: regular rate and rhythym, no murmur, rub, or gallop - ASA Status ASA Status: III (dvt )
[2018-03-10] MEDS ORDERED: PROPOFOL 200 MG/20 ML VIAL ONE ×2 (13:24)
--- NOTE | 2018-03-10 13:37 | GIREPORT ---
[facility] - Endoscopy Department Patient Name: Arianna Olivares Procedure Date: 03/10/2018 1:08 PM Patient Type: Inpatient Attending MD/ ER Physician: Zane Lockett MD Procedure: Upper GI endoscopy Indications: Iron deficiency anemia Providers: Zane Lockett MD Medicines: Sedation Required Anesthesia Staff Assistance Complications: No immediate complications. Description of Procedure: After obtaining informed consent, the endoscope was passed under direct vision. Throughout the procedure, the patient's blood pressure, pulse, and oxygen saturations were monitored continuously. The Endoscope was intro duced through the mouth, and advanced to the second part of duodenum. [facility] er GI endoscopy was accomplished without difficulty. The patient tolerated th e procedure well. Findings: The examined esophagus was normal. Patchy mild inflammation characterized by congestion (edema) and erythe ma was found in the gastric antrum. Biopsies were taken with a cold forcep s for histology. The examined duodenum was normal. Biopsies for histology were taken wit h a cold forceps for evaluation of celiac disease. Estimated Blood Loss: Estimated blood loss: none. Post Op Diagnosis: - Normal esophagus. - Gastritis. Biopsied. - Normal examined duodenum. Biopsied. Recommendation: - Await pathology results. - Perform a colonoscopy today. - Thank you for allowing me to participate in the care of your patient. Attending Participation: I personally performed the entire procedure. Zane Lockett MD Zane Lockett MD 03/10/2018 1:37:35 PM This report has been signed electronicallyZane Lockett MD Number of Addenda: 0 Note Initiated On: 03/10/2018 1:08 PM [email or web address]
[2018-03-10] MEDS ORDERED: LIDOCAINE 2% 5 ML SDV ONE (13:57)
--- NOTE | 2018-03-10 13:58 | GIREPORT ---
[facility] [place] Surgical Services - Endoscopy Department Patient Name: Arianna Olivares Procedure Date: 03/10/2018 1:07 PM Patient Type: Inpatient Attending MD/ ER Physician: Zane Lockett MD Procedure: Colonoscopy Indications: Iron deficiency anemia Providers: Zane Lockett MD Medicines: Sedation Required Anesthesia Staff Assistance Complications: No immediate complications. Description of Procedure: After obtaining informed consent, the scope was passed under direct vis ion. Throughout the procedure, the patient's blood pressure, pulse, and oxyg en saturations were monitored continuously. The Colonoscope was introduced through the anus and advanced to the cecum, identified by appendiceal orifice and ileocecal valve. The colonoscopy was performed without difficulty. The patient tolerated the procedure well. The quality of th e bowel preparation was good. The ileocecal valve and the rectum were photographed. Findings: The entire examined colon appeared normal on direct and retroflexion vi ews. Estimated Blood Loss: Estimated blood loss: none. Post Op Diagnosis: - The entire examined colon is normal on direct and retroflexion views. - No specimens collected. Recommendation: - Resume regular diet. - Resume heparin at prior dose today. Refer to managing physician for further adjustment of therapy. - Repeat colonoscopy in 10 years for screening purposes. - Thank you for allowing me to participate in the care of your patient. Attending Participation: I personally performed the entire procedure. Zane Lockett MD Zane Lockett MD 03/10/2018 1:57:59 PM This report has been signed electronicallyZane Lockett MD Number of Addenda: 0 Note Initiated On: 03/10/2018 1:07 PM Total Procedure Duration Time 0 hours 15 minutes 59 seconds [email or web address]
[2018-03-10] MEDS ORDERED: NALOXONE HCL 0.4 MG/ML INJ IVP PRN (14:09)
[2018-03-10] MEDS ORDERED: fentaNYL 100 MCG/2 ML INJ IVP PRN (14:09)
--- NOTE | 2018-03-10 14:09 | POSTANESTH ---
Post Anesthetic Evaluation Cardiovascular Status: Similar to Pre-Op Cond Respiratory Status: Similar to Pre-op Cond., Requires Airway Assist Pain Control: Adequate, Prn Tx Ordered Nausea/Vomiting Control: Adequate, Prn Tx Ordered Complications Possibly Related to Anesthesia: None Noted
[2018-03-10] MEDS ORDERED: HEPARIN 10,000 UNIT/10 ML MDV (1,000 UNIT/ML) IVP ONE (15:16)
--- NOTE | 2018-03-10 15:19 | HOSPPROG ---
Hospitalist Progress Note Assessment/Plan: DIAGNOSES: * acute PE, bilateral, hemodynamically stable with no need for supplemental oxygen * No definite and defined risk factors at this time, still under assessment * severe iron deficiency anemia chronic with some prior history of mild anemia diagnosed 1 year ago * Still having some menstrual cycles so a lot of this may be menstrual, however this is very severe anemia for menstrual bleeding and woman this age * Given that she will need full-dose anticoagulation for her PE I have reviewed in detail with Dr. Zane Lockett and we have agreed that proceeding with GI diagnostic studies at this point is prudent to be sure of the safety of the anticoagulation, also to look for causes of her iron deficiency anemia and possibly causes of her hypercoagulability * history of acute arterial occlusion of her leg approximately 2 years ago in [place], uncertain if this was embolic or atherosclerotic occlusion but given its acute nature suspect possible thrombus or embolus * Given this history would be concerned about the possibility of some chronic hypercoagulable state though she is unaware of a family history of same * Home medicines for this include Sarprogrelate a 5 hydroxytryptamine inhibitor that decreases platelet activation, and Beraprost, and medicine that blocks prostacyclin membrane receptors and also has anti-platelet activity; these are currently being held at this time originally were held because of her low platelets but also would hold them now on anticoagulation; will review use of these medicines with our vascular team here PLANS: -I reviewed her case with Dr. 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, she should have hypercoagulation panel testing done if we do not find something on the GI studies; anticardiolipin antibodies have been ordered but I will order the rest of the panel if GI workup negative SUBJECTIVE: Still some mild fever symptoms and cough The left pleuritic chest pain continues to improve but not resolved yet Still a tiny bit of intermittent hemoptysis, but no other signs of bleeding OBJECTIVE Vitals reviewed: Stable without fever 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, my review: Exam: alert oriented skin warm dry color ok resps not labored lungs clear BSs heart regular limbs warm, no edema No bruises or bleeding seen anywhere iv site ok Objective: Vital Signs Temp Pulse Resp BP Pulse Ox 36.7 C 88 14 92/56 L 94 03/10/18 14:01 03/10/18 13:20 03/10/18 13:20 03/10/18 13:20 03/10/18 13:20 Laboratory Results 03/09/18 04:12 03/09/18 04:12 03/09/18 03/10/18 03/11/18 06:59 06:59 06:59 Intake Total 1250 Balance 1250 PT 14.8 SEC (12.0-15.0) 03/10/18 05:00 INR 1.14 (0.83-1.16) 03/10/18 05:00 ICD10 Worksheet Patient Problems: Problems Problem Status Onset Flank pain Acute Pulmonary embolism Acute
[2018-03-10] MEDS ORDERED: HEPARIN/DEXTROSE 500 ML IV SCH (15:30)
[2018-03-11] MEDS: HEPARIN 10,000 UNIT/10 ML MDV (1,000 UNIT/ML) IVP PRN ×3 (00:02→14:06)
[2018-03-11] MEDS: ACETAMINOPHEN 325 MG TAB PO PRN ×2 (05:45→18:14)
[2018-03-11 06:16] LABS: INR 1.09 (0.83-1.16); PROTIME(PATIENT) 14.3 SEC (12.0-15.0)
[2018-03-11 07:00] LABS: PLATELET COUNT 145 10^3/uL (150-400)
--- NOTE | 2018-03-11 08:33 | SOAPPROG ---
SOAP Progress Note Assessment/Plan: Assessment: Normal EGD and Colonoscopy. No source of chronic GI loss identified. Small bowel biopsies pending. History of heavy menstrual bleeding. Plan: 1. anti-coagulation resumed for management of PE 2. Await SB biopsies to rule out celiac disease 3. Patient with PE for unclear reasons. History of PVD with LE arterial clot. ? Hematology consult. 4. ? [employer] evaluation for heavy menstrual bleeding in 52 year old. 4. Will sign off, please call with further question. 03/11/18 08:34 Subjective: CC: PE, anemia Patient tolerating PO, no abdominal pain or discomfort. Objective: Vital Signs Temp Pulse Resp BP Pulse Ox 37.3 C 71 12 98/62 L 97 03/11/18 05:45 03/11/18 04:00 03/11/18 04:00 03/11/18 04:00 03/11/18 04:00 Laboratory Results 03/11/18 05:40 03/11/18 05:40 03/10/18 03/11/18 03/12/18 05:59 05:59 05:59 Intake Total 825 Output Total 0 Balance 825 PT 14.3 SEC (12.0-15.0) 03/11/18 05:40 INR 1.09 (0.83-1.16) 03/11/18 05:40 Generic Name Dose Route Start Last Admin Trade Name Freq PRN Reason Stop Dose Admin Acetaminophen 650 mg 03/07/18 18:29 03/11/18 05:45 Tylenol PO 09/03/18 18:28 650 mg Q4HRS PRN Administration Pain, Mild/Fever, Can Take PO Albuterol 1 - 2 puffs 03/07/18 20:07 Proventil Inhaler 09/03/18 20:06 Q4H PRN *SOB/Dyspnea Albuterol 3 ml 03/08/18 12:55 03/09/18 15:15 Proventil Neb 09/04/18 12:54 3 ml Q4HRS PRN Administration Short of Breath/Dyspnea Bisacodyl 10 mg 03/10/18 10:11 Dulcolax Rectal MN ONCE PRN No BM from mag. citrate Enoxaparin Sodium 50 mg 03/08/18 11:45 03/09/18 08:19 Lovenox SC 09/04/18 11:44 50 mg BID DOMENIC Administration Guaifenesin 200 mg 03/07/18 20:08 Organidin Nr PO 09/03/18 20:07 Q4HRS PRN Cough, Mild Heparin Sodium (Porcine) 0 unit 03/09/18 20:00 03/10/18 02:57 Heparin Injection IVP 09/05/18 19:59 741 units PRN PRN Administration Bolus per protocol Protocol Heparin Sodium (Porcine) 0 unit 03/10/18 15:16 03/11/18 06:25 Heparin Injection IVP 09/06/18 15:15 700 units PRN PRN Administration Bolus per protocol Protocol Heparin Sodium (Porcine) 500 mls @ 0 mls/hr 03/09/18 20:00 03/09/18 19:48 Heparin 50 Units/Ml (Premix) IV 09/05/18 19:59 500 mls CONT DOMENIC Administration Protocol Per Protocol Heparin Sodium (Porcine) 500 mls @ 0 mls/hr 03/10/18 15:30 Heparin 50 Units/Ml (Premix) IV 09/06/18 15:29 CONT DOMENIC Protocol Per Protocol Melatonin 3 mg 03/08/18 01:20 03/08/18 02:01 Melatonin PO 09/04/18 01:19 3 mg HS PRN Administration Sleep/Insomnia Ondansetron HCl 4 mg 03/07/18 18:29 Zofran IVP 09/03/18 18:28 Q4HRS PRN Nausea/Vomiting, Can't Take PO Ondansetron HCl 4 mg 03/07/18 18:29 Zofran Odt PO 09/03/18 18:28 Q4HRS PRN Nausea/Vomiting, Use 1st Oxycodone HCl 5 - 10 mg 03/07/18 23:37 03/10/18 04:51 Oxycodone Ir PO 03/17/18 23:36 10 mg Q4HRS PRN Administration Pain, Mod/Severe PO, able Warfarin Sodium 5 mg 03/08/18 16:00 03/09/18 15:11 Coumadin PO 09/04/18 15:59 Not Given DAILY AT 4PM PENDING SALE TO [facility] Discontinued Medications Generic Name Dose Route Start Last Admin Trade Name Freq PRN Reason Stop Dose Admin Fentanyl 25 - 100 mcg 03/10/18 14:09 Sublimaze IVP 03/10/18 15:09 Q5M PRN PACU, IMMEDIATE Pain control Heparin Sodium (Porcine) 0 unit 03/07/18 20:06 03/08/18 04:43 Heparin Injection IVP 09/03/18 20:05 1,480 units PRN PRN Administration Bolus per protocol Protocol Heparin Sodium (Porcine) Confirm 03/07/18 20:15 Heparin 50 Units/Ml (Premix) Administered 03/07/18 20:16 Dose 25,000 unit .ROUTE .STK-MED ONE Heparin Sodium (Porcine) 0 unit 03/10/18 15:16 03/10/18 15:35 Heparin Injection IVP 03/10/18 15:17 3,000 units ONCE ONE Administration Protocol Sodium Chloride 500 mls @ 0 mls/hr 03/07/18 16:27 03/07/18 16:50 Ns IV 03/07/18 16:28 500 mls EDNOW ONE Administration Protocol Wide Open Heparin Sodium (Porcine) 500 mls @ 0 mls/hr 03/07/18 20:15 03/07/18 21:26 Heparin 50 Units/Ml (Premix) IV 09/03/18 20:14 500 mls CONT DOMENIC Administration Protocol Per Protocol Ferric Sodium Gluconate 110 mls @ 110 mls/hr 03/08/18 11:00 03/09/18 08:19 Complex 125 mg/ Sodium IV 03/09/18 09:59 110 mls Chloride DAILY DOMENIC Administration Iopamidol Confirm 03/07/18 17:55 Isovue-370 Administered 03/07/18 17:56 Dose 100 ml IV .STK-MED ONE Lidocaine HCl Confirm 03/10/18 13:57 Xylocaine-Mpf 2% Vial Administered 03/10/18 13:58 Dose 5 ml .ROUTE .STK-MED ONE Magnesium Citrate 300 ml 03/10/18 06:45 03/10/18 07:07 Magnesium Citrate PO 03/10/18 06:46 300 ml ONCE ONE Administration Naloxone HCl 0.1 mg 03/10/18 14:09 Narcan IVP 03/10/18 15:09 Q2M PRN PACU Resp Rate <10/min Polyethylene Glycol/Electrolytes 4,000 ml 03/09/18 17:37 03/09/18 18:09 Gavilyte - G PO 03/09/18 17:38 4,000 ml ONCE ONE Administration Propofol Confirm 03/10/18 13:24 Diprivan Administered 03/10/18 13:25 Dose 200 mg .ROUTE .STK-MED ONE Propofol Confirm 03/10/18 13:24 Diprivan Administered 03/10/18 13:25 Dose 200 mg .ROUTE .STK-MED ONE Physical Exam - Physical Exam General Appearance: alert, no apparent distress Respiratory: lungs clear, normal breath sounds Cardiac/Chest: regular rate, rhythm Abdomen: normal bowel sounds, non-tender, soft Skin: warm/dry Neuro/Psych: alert, normal mood/affect, oriented x 3 ICD10 Worksheet Patient Problems: Problems Problem Status Onset Flank pain Acute Pulmonary embolism Acute
[2018-03-11] MEDS: HEPARIN/DEXTROSE 500 ML IV SCH (09:04)
[2018-03-11 17:05] VITALS: BP 94/60
[2018-03-11] MEDS ORDERED: APIXABAN 5 MG TAB PO SCH ×2 (17:52→21:00)
--- NOTE | 2018-03-11 18:14 | PDDCSUM ---
Discharge Summary Discharge Summary: DISCHARGE DIAGNOSES: -acute pulmonary embolism with pulmonary infarct, with stable blood pressure pulse and respirations at admission, no hypoxemia during the hospital stay * Her 1st venous thrombo embolic event, unprovoked * -prior history of acute arterial thrombus to leg treated previously with platelet inhibitors prescribed in [place] -chronic iron deficiency anemia is currently very severe and worse now than it has been in the past -chronic menometrorrhagia ongoing at age 52 PROCEDURES: CT scan of chest with pulmonary angiography HOSPITAL COURSE SUMMARY: This patient presented the hospital with shortness of breath, cough, low-grade fever, hemoptysis. There is left pleuritic chest pain. She is found have bilateral pulmonary emboli with a left pulmonary infarct. She has had normal oxygen levels here and has not had signs of respiratory failure. She came in with stable blood pressure and pulse. Her pulses remained normal through the hospital stay. There was a point during hospital stay when she was somewhat hypotensive but this was felt to be due to some dehydration as she was given multiple laxatives for colonoscopy, and was NPO for period of time there, in addition to her severe iron deficiency. The patient was initially treated with Lovenox and this was changed to heparin as we prepared for evaluation of her anemia with endoscopies. She tolerated her heparin and Lovenox well and did not have any evidence of further embolization. There is no bleeding complication here. On review of her options and review of the pros and cons of the various anticoagulant medicines, the patient has chosen to use Eliquis as the anticoagulation going forward after discharge. Notably this patient had a spontaneous unprovoked arterial thrombus and 1 of her legs about a year ago diagnosed and treated in [place]. From what she describes to us it sounds like she did not have significant atherosclerosis but she does not have any records for us to review at this time. She was prescribed 2 different platelet inhibitors which she has been taking, she gets them from foreign language professor as they are not available in this country. Notably in addition, I year and half ago she was diagnosed with a very mild iron deficiency and she was told to eat more meat and green vegetables but not evaluated further or treated with any medication per se. At the time of this admission she comes in severely iron deficient with a microcytic anemia hemoglobin of 8. She tells me that she has a history of ongoing menstrual bleeding monthly for about a week, and that in the past year while on the platelet inhibitors the bleeding is been much more pronounced. She has not noticed any other bleeding. She does not have any digestive symptoms such as constipation. Because her iron deficiency anemia with no prior GI workup, and now needing anticoagulation, we reviewed the options and recommended colonoscopy an EGD for her which she agreed to. The studies were done and there were no abnormal lesions or evidence of bleeding seen. Her anticoagulation has now been resumed after those endoscopy studies. Complicating issues here include concerned that she may have a hypercoagulable state as she has now had unprovoked arterial thrombus in the leg and unprovoked pulmonary embolus. Hypercoagulation blood tests are pending at this time. Other illnesses such as malignancies or inflammatory disease could be provocative of such clots but she does not have specific symptoms of illness or findings here to suggest any such illness. Because she will need anticoagulant medicine is currently recommended that she not continue taking the platelet inhibitor medicines from [place] that she has been using for the last year. This was reviewed with Dr. Olivia of Heme-Onc service, and the patient will be seeing Dr. Olivia in clinic next week to review her treatment and her hypercoagulation panel, question of any further evaluation for other potential causes of hypercoagulation. In addition as she has the iron deficiency anemia she was given some doses of intravenous iron here and is prescribed oral iron now to take at home. Because she has been having ongoing severe menstrual bleeding she will require a gynecologic assessment, as her current level of anemia and iron deficiency are putting her at significant risk, particularly as she is on anticoagulant medicine. It is possible that she may do better off of the anti-platelet medicines, however it could be possible that she has malabsorption iron. Biopsy studies from her upper endoscopy to look for possible iron malabsorption are pending. We also have not assessed her full small bowel and she continues to have iron deficiency that does not correct with replacement, she may require capsule endoscopy at some point to rule out a small bowel lesion. PENDING TEST RESULTS: Hypercoagulation panel Small-bowel biopsies from EGD to look for evidence of a malabsorption of iron MEDICATION CHANGES: Addition of Eliquis 5 mg twice daily Addition of oral iron supplements with vitamin C to take along with him Discontinuation of her 2 platelet inhibitor medicines, both ordered from [place], Beraprost and Sapregrelate FOLLOW-UP PLAN: She will follow up at [facility] for review of her anemia , her iron deficiency, her current pulmonary embolism and its management, as well as her history of arterial thrombus to the leg. An appointment is to be made in the next 10-14 days. This is being arranged through the [facility] office who will call the patient but she is instructed to call them if she does not hear within a couple of days. Greater than 35 minutes bedside and care coordination time today
--- NOTE | 2018-03-12 10:13 | ASMTCMCOM ---
CM Note CM Note Notes: Yesterday, 03/11/18 SWer provided list of bereavement support groups through [facility] to bedside RN. RN gave Pt. referrals as they had been talking about Pt's grief after losing her "last year". SWer had intended to see Pt. today, 03/12/18 to further discuss grief and also refer Pt. to a PCP. Pt. was discharged yesterday evening after 17:00 and SWer missed her. Pt d/c'ed home independently. Will need referral to PCP. Date Signed: 03/12/2018 10:12 AM Electronically Signed By:Nasreen Richey LCSW
--- NOTE | 2018-03-12 10:14 | ASDISCHSUM ---
Discharge Information Plan Status:Home with No Needs Medically Cleared to Leave: Discharge Date:03/11/2018 06:43 PM CM D/C Disposition:Home, Routine, Self-Care ADT D/C Disposition:Home, Routine, Self-Care Projected Discharge Date:03/11/2018 06:43 PM Transportation at D/C:Family Discharge Delay Reason: Follow-Up Date:03/11/2018 06:43 PM Discharge Slot: Final Diagnosis: Placement Information Patient Contact Information Contact Name:LILIANE Relationship:Daughter Address:[address] [place] [address] Work Phone: City:[place] Alternate Phone: [facility]/Zip Code:[place] [address] Email: Financial Information Financial Class:Medicaid Primary Plan Desc:MEDICAID [facility] IP Primary Plan Number:[id number] Secondary Plan Desc: Secondary Plan Number: Assessment Information [facility] CM Progress Note CM Note CM Note Notes: Chart reviewed.Met with patient. 52 Year old female with PE. She shares she lost her 1 year ago and is still grieving. She Has not sought counseling and tells me she has a support network of friends but none are local. She is tearful and believes that her grief is causing her health issues. We talked about Her following up with Ania Ley as she has had no need for routine care until now. We also talked about her seeking counseling to help with her depression. She shares with me that maybe she will look for employment or volunteer. Her family is in [place] but she somehow feels closer to her here. CM to follow. Plan: DC to home with PCP provider in place Date Signed: 03/08/2018 04:34 PM Electronically Signed By:Dee Flores RN [facility] CM Progress Note CM Note CM Note Notes: Yesterday, 03/11/18 Jessica provided list of bereavement support groups through [facility] to bedside RN. RN gave Pt. referrals as they had been talking about Pt's grief after losing her "last year". Dominickr had intended to see Pt. today, 03/12/18 to further discuss grief and also refer Pt. to a PCP. Pt. was discharged yesterday evening after 17:00 and Dominickr missed her. Pt d/c'ed home independently. Will need referral to PCP. Date Signed: 03/12/2018 10:12 AM Electronically Signed By:Nasreen Richey LCSW Intervention Information
== END 2018-03-11 18:43 | disposition home or self-care (01) | DRG 134 ==
LOC: OBSVTOIN 18:29 → F3E 20:36
PROVIDERS: ADMIT Internal Medicine; ATTEND Internal Medicine
DX: I26.99 Other pulmonary embolism without acute cor pulmonale (principal); D69.59 Other secondary thrombocytopenia; F17.210 Nicotine dependence, cigarettes, uncomplicated; R50.9 Fever, unspecified; D50.9 Iron deficiency anemia, unspecified; N92.1 Excessive and frequent menstruation with irregular cycle; R91.1 Solitary pulmonary nodule; Z88.0 Allergy status to penicillin; Z86.718 Personal history of other venous thrombosis and embolism
CPT/HCPCS: 85300-90; 85303-90; 85306-90; 85520-90; 86147-90; G0378; J1644; J1650; J2704; J2916; J7613; Q9967

== ENCOUNTER → 2019-04-28 | Outpatient (CLI) | payer MEDICAID | LOC: FIMAGING 10:07 ==